=== PATIENT | male | born 1960 | race Caucasian/White ===

== ENCOUNTER → 2021-12-05 08:55 | Outpatient (CLI) | payer OTHER, SELFPAY ==
--- NOTE | ~2021-12-05 | XR_ITS ---
XR knee LT 3V DATE: 12/05/2021 09:20 INDICATION: Left knee pain. Polyarticular osteoarthritis. TECHNIQUE: [place] and standing AP and lateral views COMPARISON: None FINDINGS: There is minimal periarticular spurring of the patella. No fracture, dislocation, periosteal reaction or bone destruction, radiopaque intra-articular loose b eusebio or chondrocalcinosis is detected. IMPRESSION: Minimal periarticular spurring of the patella Reviewed, dictated and finalized at location A. SEALER
--- NOTE | ~2021-12-05 | XR_ITS ---
XR lumbar spine 6V w bending DATE: 12/05/2021 09:20 INDICATION: Low back pain TECHNIQUE: Standing AP, lateral, flexion and extension lateral views. [place]ed lateral lumbosacral view. Supine bilateral oblique views. COMPARISON: None FINDINGS: The included lower thoracic and lumbar pedicles are intact. No fracture or bone destruction is eviden t. There is no evidence of instability on flexion or extension. There is degenerative change at the apophyseal joints, with associated minimal grade 1 anterolisthesi s at L4-5. There are bilateral pars interarticularis defects at L5 with associated borderline grade 1/grade 2 an terolisthesis at L5-S1. There is severe degenerative disease at L5-S1 and moderate degenerative disc disease of the remaining lumbar spine. The sacroiliac joints are intact. Status post surgical clips, right upper quadrant, likely due to cholecystectomy. IMPRESSION: Multilevel degenerative disc disease, most severe at L5-S1 Bilateral L5 pars interarticularis defects with borderline grade 1/grade 2 anterolisthesis at L5-S1 Degenerative change at the facet joints with minimal grade 1 anterolisthesis at L4-5 Reviewed, dictated and finalized at location A. STRIAL PARAMEDIC IMPRESSION: Multilevel degenerative disc disease, most severe at L5-S1 Bilateral L5 pars interarticularis defects with borderline grade 1/grade 2 ante rolisthesis at L5-S1 Degenerative change at the facet joints with minimal grade 1 anterolisthesis at L4-5
--- NOTE | ~2021-12-05 | XR_ITS ---
XR knee RT 3V DATE: 12/05/2021 09:20 INDICATION: Right knee pain. Polyarticular osteoarthritis. TECHNIQUE: [place] and standing AP and lateral views COMPARISON: None FINDINGS: No fracture or dislocation or joint effusion. No periosteal reaction or bone destruction, r adiopaque intra-articular loose body or chondrocalcinosis. Joint spaces are relatively preserved. IMPRESSION: No significant abnormality Reviewed, dictated and finalized at location A. CTOR IT IMPRESSION: No significant abnormality
== END ==
PROVIDERS: PCP Internal Medicine; Visit Provider Internal Medicine
DX: M15.9 Polyosteoarthritis, unspecified (principal); M51.37 Other intervertebral disc degeneration, lumbosacral region
CPT/HCPCS: 72114; 73562

== ENCOUNTER → 2022-12-06 08:44 | Outpatient (CLI) | payer OTHER, SELFPAY ==
--- NOTE | ~2022-12-06 | MR_ITS ---
MRI of the right shoulder Technique: Axial proton-density fat-sat images, coronal proton density fat-sat and T2 fat-sat images, and sagittal T1-weighted and T2 fat-sat images were acquired. Clinical History: Pain Findings: There is moderate to advanced AC joint degenerative change, with subacromial spur present. There is borderline narrowing of the humeral acromial distance. Coracoclavicular, coracoacromial, and coracohumeral ligaments are intact. There is advanced supraspinatus tendinosis, probable low-grade articular surface fraying. No high-gra de partial or full-thickness tear identified. Subscapularis tendon is intact, with mild tendinosis. T endon of long head of biceps is intact. There is probable degenerative tearing at the anterior labrum. There is thickening and increased signal of the inferior glenohumeral ligament. There is minimal infi ltration of subcoracoid fat. No glenohumeral joint effusion present. Minimal fluid present in the sub acromial/subdeltoid bursa. No significant degenerative change of the glenohumeral joint. No muscle at rophy or edema. Impression: Findings suggestive of adhesive capsulitis. Correlate clinically. Extensive rotator cuff tendinosis with probable low-grade articular surface fraying of the supraspina tus tendon. No high-grade partial or full-thickness rotator cuff tear seen. Probable mild degenerative tearing/attenuation of the anterior labrum. Moderate to advanced AC joint degenerative change, as detailed above. Reviewed, dictated and finalized at [facility]. R PUMPER Impression: Findings suggestive of adhesive capsulitis. Correlate clinically. Extensive rotator cuff tendinosis with probable low-grade articular surface fra haseeb of the supraspinatus tendon. No high-grade partial or full-thickness rotat or cuff tear seen. Probable mild degenerative tearing/attenuation of the anterior labrum. Moderate to advanced AC joint degenerative change, as detailed above.
== END ==
PROVIDERS: PCP Orthopaedic Surgery; Visit Provider Physician Assistant Surgical
DX: M25.511 Pain in right shoulder (principal); R93.6 Abnormal findings on diagnostic imaging of limbs
CPT/HCPCS: 73221

== ENCOUNTER 2023-02-13 12:13 | Outpatient (CLI) | payer OTHER, SELFPAY ==
--- NOTE | 2023-02-13 12:25 | ECG_ITS ---
Measurements Intervals [place] Rate: 70 P: 35 MD: 245 QRS: -27 QRSD: 146 T: 0 QT: 404 QTc: 438 Interpretive Statements SINUS RHYTHM WITH FIRST DEGREE AV BLOCK BORDERLINE LEFT AXIS DEVIATION [QRS AXIS < -20] NO PREVIOUS ECG AVAILABLE FOR COMPARISON Electronically Signed On 02-13-2023 18:33:49 CDT by Riana Markham M.D.
[2023-02-13 12:53] LABS: Anion Gap 6 mmol/L (8-16); Blood Urea Nitrogen 23 mg/dL (9-20); Calcium 9.8 mg/dL (8.4-10.2); Carbon Dioxide 35 mmol/L (22-30); Chloride 99 mmol/L (98-107); Estimated Glomerular Filt Rate > 60; Glucose 168 mg/dL (65-110); Potassium 3.6 mmol/L (3.4-5.0); Sodium 140 mmol/L (137-145)
== END 2023-02-13 12:14 | disposition home or self-care (01) ==
LOC: ANHSURGERY 12:17
PROVIDERS: Anesthesiology; PCP Student in an Organized Health Care Education/Training Program; Visit Provider Orthopaedic Surgery
DX: I44.0 Atrioventricular block, first degree (principal); E11.9 Type 2 diabetes mellitus without complications; I10 Essential (primary) hypertension
CPT/HCPCS: 36415; 80048; 93005

== ENCOUNTER 2023-02-20 00:52 | Day surgery (SDC) | payer OTHER, SELFPAY ==
[2023-02-10 09:27] VITALS: BMI 28.1
--- NOTE | 2023-02-10 09:48 | PC.NURSE ---
Report to the Outpatient Waiting Room, entrance under the green pavilion located off [facility], at time __6:00AM on date __02/20/23 . Planned Procedure Time: _7:30AM . Time changes happen often and if your time is changed the preop area will call you the afternoon before. - You and your visitor will be asked to self-screen and do not enter if you have any COVID symptoms. - A mask is optional within the hospital at this time. Patients may have clear liquids (water, carbonated beverages, clear teas, apple juice) until 3 hours prior to surgery with a maximum of 20 ounces. - No food from midnight until time of surgery Take the following medications with a SIP of water the morning of surgery: __AMLODIPINE, CARVEDILOL, CITALOPRAM DO NOT STOP ANY OF YOUR OTHER PRESCRIPTION MEDICATIONS PRIOR TO SURGERY ?EXCEPT THE FOLLOWING Medications to discontinue per physician ___HOLD ASPIRIN 7 DAYS PRE-OP PER DR ROGERS- LAST DOSE 02/13/23, HOLD ALL VITAMINS/SUPPLEMENTS 3 DAYS PRE-OP PER ANESTHESIA- LAST DOSE 02/16/23 Please no make-up, nail urdu, hairspray, perfume, deodorant, or body powder the day of surgery. No jewelry (including any body piercings) or valuables the day of surgery, leave them at home. Please take a shower or bath the night before, or the morning of, surgery with an antibacterial soap. Wear comfortable, loose fitting clothing. Children are encouraged to wear pajamas. - Jewelry must be removed prior to entering the operating room. Rings and piercings that are not removed may be cut off. - The hospital will not accept responsibility for valuables. - Please leave all valuables, including medications, at home the day of surgery. If you are going home after surgery, a licensed driver material handler must drive you home. - NO public transportation without another adult if you receive anesthesia. - We recommend that an adult stay with you for 24 hours following discharge. - We also recommend that you do not drive, make important decision, drink alcoholic beverages, or take any drugs that were not prescribed by your health care provider for at least 24 hours after your discharge time. Follow any additional instructions given to you from your surgeon. If you or anyone in your household have experienced Covid symptoms in the past week, please notify your surgeon or the nurse liaison at the phone number below for possible testing. Telephone instructions given to __PATIENT and asked if any additional questions and then verbalized understanding. Patient advised to call surgeon office or pre surgery nurse liaison [phone] if any additional questions.
--- NOTE | 2023-02-19 13:23 | WPDANESEPPF ---
Anes - Initial Pre Proc Eval Procedure: Operation Date: 02/20/23 07:30 Proposed Procedures p Right Arthroscopic Capsule Release, Subacromial Decompression, Proceed as Indicated - Osvaldo Rucker MD Date/Time: 02/19/23 13:23 Surgeon: Osvaldo Rucker MD Pre Op Diagnosis: Adhesive Capsulitis Right Shoulder Patient Data Age: 62 Gender: M Height: 1.93 m Weight: 105 kg Allergies Allergy/AdvReac Type Severity Reaction Status Date / Time No Known Allergies Allergy Verified 02/10/23 09:13 Home Medications Medication Instructions Recorded Confirmed Type aspirin 81 mg tablet,delayed 81 mg PO DAILY 11/20/21 02/10/23 History release cholecalciferol (vitamin D3) 125 125 mcg PO DAILY 11/20/21 02/10/23 History mcg (5,000 unit) capsule coenzyme Q10 60 mg tablet 60 mg PO DAILY 11/20/21 02/10/23 History cyanocobalamin (vitamin B-12) 100 100 mcg PO 3XW 11/20/21 02/10/23 History mcg tablet indapamide 2.5 mg tablet 2.5 mg PO QAM 11/20/21 02/10/23 History lactobacillus combination no.9 4 4,000 mmu cells PO BID 11/20/21 02/10/23 History billion cell capsule (Adult 50 Plus Probiotic) magnesium 250 mg tablet 250 mg PO DAILY 11/20/21 02/10/23 History vitamin B complex (Vitamins B 1 cap PO DAILY 11/20/21 02/10/23 History Complex capsule) glimepiride 4 mg tablet 4 mg PO BID 02/28/22 02/10/23 History omega-3 339 mg-dha and epa 314 1 cap PO DAILY 02/28/22 02/10/23 History mg-fish and krill oil 500 mg capsule (MegaRed Advanced 4-in-1) turmeric 400 mg capsule 400 mg PO DAILY 02/28/22 02/10/23 History carvedilol 25 mg tablet 25 mg PO Q12H #180 tabs 04/24/22 02/10/23 Rx metformin 500 mg tablet 500 mg PO BID 90 days #180 tabs 04/24/22 02/10/23 Rx L.acidophil-L.casei-B.bifid-B.longum-FOS 1 cap PO TID 02/10/23 02/10/23 History 2 billion cell-50 mg capsule (Probiotic Blend) amlodipine 5 mg tablet 5 mg PO QAM 02/10/23 02/10/23 History citalopram 20 mg tablet 20 mg PO QAM 02/10/23 02/10/23 History fluvastatin 80 mg tablet,extended 80 mg PO HS 02/10/23 02/10/23 History release 24 hr (Lescol XL) lisinopril 40 mg tablet 40 mg PO QAM 02/10/23 02/10/23 History multivitamin 1 tablet PO DAILY 02/10/23 02/10/23 History Patient hx anesthesia problems: none Family hx anesthesia problems: none Results Review: All pre-operative results and documents have been reviewed as part of the pre-operative evaluation. [facility] Past Medical History Medical History (Updated 12/11/22 @ 09:44 by Salma Butler MA) Anesthesia complication Difficulty waking up after anesthesia Back problem Degenerative disc disease Depression Diabetes Dyslipidemia Encounter for screening colonoscopy Erectile dysfunction Establishing care with new doctor, encounter for High cholesterol History of stress test (~1999) Hypertension Hypovitaminosis D Left shoulder pain Lower back pain Vaccine counseling Venous insufficiency Surgical History Surgical History (Updated 01/09/23 @ 13:08 by Salma Butler MA) H/O hernia repair (~2013) History of arthroscopic surgery of shoulder left shoulder bone spur taken out History of arthroscopy of both knees (~2001) History of bowel resection (~2011) Family History Family History Unknown Diabetes mellitus Hypertension Cancer Social History Social History Smoking status: Never smoker Second hand tobacco smoke exposure: No Alcohol intake: current Drinks per week: 1 Alcohol use details: social wine beers Substance use: never Substance use type: does not use Lack of Transportation: No Lack of Food: Never True Current Housing: I Have Housing Concerned About Future Housing: No Difficulty Paying Gas/Electric Bills: No Difficulty Paying for Meds: No Currently Unemployed: No Education: Bachelor's Degree Difficulty w/ Childcare or Fami
[2023-02-20] VITALS (8 sets, daily range): BP systolic 94–130; BP diastolic 45–74; PULSE 51–69; RESP 14–18; TEMP 36.2; O2SAT 92–98
[2023-02-20] MEDS: LACTATED RINGERS 1,000 ML 30 ML IV CONT (07:14)
--- NOTE | 2023-02-20 07:15 | WPDHPUPDATE1 ---
History and Physical Update Update Date/Time: 02/20/23 07:15 History and Physical has been reviewed, including an updated exam of the patient. There are NO changes in the patient's condition. Risks, benefits, and alternatives have been discussed and questions answered. Patient agrees to proceed with procedure.
[2023-02-20] MEDS: KETOROLAC 15 MG/ML VIAL (*BKC) IV PUSH (07:17)
[2023-02-20] MEDS: ACETAMINOPHEN 500 MG TABLET 1000 MG PO (07:17)
[2023-02-20 07:20] LABS: Glucose Point of Care 168 mg/dl (65-105)
[2023-02-20] MEDS: ceFAZolin 2 GM/D5W 50 ML 2 GM/50 ML BAG IVPB (07:36)
--- NOTE | 2023-02-20 07:40 | WPDANESPNB ---
Anes - Peripheral Nerve Block Date/Time: 02/20/23 07:40 I have discussed with the patient/family/POA the placement of a peripheral nerve block for post-operative pain management, including associated risks, benefits, complications, and side effects. Alternative methods of post-operative analgesia were detailed. Questions were solicited and answers provided to the satisfaction of the patient/family/POA. Time-Out: A pre-procedural Time-Out was completed immediately before starting the procedure and confirmed: Patient Identification, Site, Procedure, Patient Position and the Availability of Requisite Equipment. Clinical Indications: Acute post-operative pain management requested by the operative surgeon. Nerve Block Insertion Note Anes-nerve block: interscalene right Patient position: supine Skin prep: chlorhexidine Needle: 22 gauge, stimulating, insulated echogenic needle. Needle length: 50 mm Technique: ultrasound Injectate: bupivacaine 0.5% with epi 5 mcg/ml (30cc- no epi) Observations: tolerated well Complications: none Procedure start time:: 725 Procedure end time:: 729
[2023-02-20] MEDS: EPINEPHrine HCL INJ 1 MG/ML AMPUL 3 MG IRRIGATION (08:21)
--- NOTE | 2023-02-20 10:04 | P.OP_ITS ---
Procedure Note - Detailed Date of Procedure 02/20/23 Pre-op Diagnosis Adhesive Capsulitis Right Shoulder Post-op Diagnosis Other (1. Rotator cuff tear 2. Subacromial impingement 3. Adhesive capsulitis) Procedure Performed Right shoulder 1. Arthroscopic rotator cuff repair 2. Arthroscopic subacromial decompression 3. Arthroscopic capsule release with manipulation under anesthesia Surgeon Osvaldo Rucker MD Ob Gyn Physician Assistant Earline Jules PA-C Anesthesia General and Regional ( interscalene block) Findings Severe contracture initially. This was released in large part with the manipulation under anesthesia. Further release of the middle glenohumeral ligament performed with the arthroscopic hook probe. Mid grade articular tear and high-grade bursal tear completed to a medium size full-thickness rotator cuff tear of the supraspinatus. Evidence of subacromial impingement treated with acromioplasty. Repair accomplished with 2 bone tunnels and 6 suture rip stop repair. Glenohumeral cartilage good. Minimal labral fraying. Biceps and subscapularis intact. Moderate expected capsulitis. Description of Procedure Preoperative antibiotics were given. An interscalene block was administered in the preoperative area. The patient was bought brought to the operating room. A general anesthetic was administered. The patient was carefully positioned in the beach chair position. The head and neck were carefully positioned. The non operative extremity was also carefully positioned. The shoulder was prepped and draped in the usual sterile fashion. Examination was performed. Standard posterior and anterior arthroscopic portals were established. Inflow achieved with the arthroscopic pump using saline and epinephrine. The glenohumeral joint was carefully inspected. The articular supraspinatus tear was debrided lightly. It was estimated to be 30% thickness.. Attention was turned to the subacromial space. A complete bursectomy was performed. The bursal tissue was clearly impinging and partially torn. Very minimal probing of the tear confirmed a high-grade partial-thickness tear. The tear was completed with minimal shaving. The rotator cuff and footprint were lightly debrided. A modest acromioplasty wa s performed. The tear configuration was carefully assessed; type 1 medium size tear without retraction. At this point, 2 tunnels were created at the rotator cuff. The ArthroTunneler technique was utilized. Three sutures were passed through each tunnel. All sutures were then passed through the cuff tissue. The rip stop technique was utilized with the 2nd and 5th suture. The sutures were tied arthroscopically. The arthroscopic instruments were removed. The wounds were closed with 4-0 Monocryl subcuticular suture and steri strips. There were no complications. A sling was applied and the patient brought to the recovery room. Physician automotive service assistant, Earline Jules PA-C, required for surgery; including patient positioning, draping, arthroscopic camera operation, maintaining instrument position, suture retrieval, wound closure, and dressing and sling placement. Estimated Blood Loss 10 Pathology None sent Complications No immediate complications Condition Stable Disposition PACU [facility] Billing Surgery - Charge Forward: Surgery Billing
[2023-02-20] MEDS: INSULIN HUMAN REGULAR (*BKC) 100 UNITS/ML IV PUSH (10:15)
[2023-02-20 10:20] LABS: Glucose Point of Care 255 mg/dl (65-105)
[2023-02-20 11:04] LABS: Glucose Point of Care 246 mg/dl (65-105)
== END 2023-02-20 11:52 | disposition home or self-care (01) ==
PROVIDERS: PCP Student in an Organized Health Care Education/Training Program; Visit Provider Orthopaedic Surgery
PROC: (CPT 29805; principal; 2023-02-20 07:30)
DX: M75.01 Adhesive capsulitis of right shoulder (principal); M75.101 Unspecified rotator cuff tear or rupture of right shoulder, not specified as traumatic; M75.41 Impingement syndrome of right shoulder; G89.18 Other acute postprocedural pain; E11.9 Type 2 diabetes mellitus without complications; I10 Essential (primary) hypertension; E78.00 Pure hypercholesterolemia, unspecified; E55.9 Vitamin D deficiency, unspecified; F32.A Depression, unspecified; Z79.84 Long term (current) use of oral hypoglycemic drugs; Z79.82 Long term (current) use of aspirin
CPT/HCPCS: 29827; 29826; 64415; 82948; A9270; J0171; J0690; J1100; J1170; J1815; J1885; J2250; J2405; J2704; J2710; J3010; J7120